=== PATIENT | female | born 1935 | race Caucasian/White ===

== ENCOUNTER 2016-11-17 14:53 | Inpatient (IN) | payer MEDICARE, MEDICAID ==
[~2016-11-17] VITALS: Ht 165.1 cm; Wt 91.2 kg
[~2016-11-17 14:53] MED LIST: ALLO100T PO; BENA5TAB2 PO; FEE PK DOSING 1 MIN EA MC ONE; FURO20TA PO; SULF1TAB48 PO; ZOLP5TAB2 PO
[2016-11-17] MEDS ORDERED: ATOR10TA PO (15:54)
[2016-11-17] MEDS ORDERED: OLOP2.5D EACHEYE (15:54)
[2016-11-17] MEDS ORDERED: LEVO25TA9 PO (15:54)
[2016-11-17] MEDS ORDERED: SULF1TAB48 PO (15:54)
[2016-11-17] MEDS ORDERED: ERGO50003 PO (15:54)
[2016-11-17] MEDS ORDERED: FLUO15CR2 TP (15:54)
[2016-11-17] MEDS ORDERED: FEBU40TA PO (15:54)
[2016-11-17] MEDS ORDERED: RIVA10TA PO (15:54)
[2016-11-17] MEDS ORDERED: TRAZ-144 PO (15:54)
[2016-11-17] MEDS ORDERED: AMIO200T2 PO (15:54)
[2016-11-17] MEDS ORDERED: MULT-659 PO (15:54)
[2016-11-17] MEDS ORDERED: DOCU-270 PO (15:54)
[2016-11-17] MEDS ORDERED: ASCO500T9 PO (15:54)
[2016-11-17] MEDS ORDERED: FERR325T28 PO (15:54)
[2016-11-17] MEDS ORDERED: COLC0.6T69 PO (15:54)
[2016-11-17] MEDS ORDERED: FLUT1DIS3 IH (15:54)
[2016-11-17] MEDS ORDERED: ERYT3.5O24 RIGHTEYE (15:55)
[2016-11-17 15:59] LABS: BASOPHILS # (AUTO) 0.1 /CMM (0.0-0.2); BASOPHILS % (AUTO) 0.5 % (0.0-2.0); DIFF TOTAL % 100 %; EOSINOPHILS # (AUTO) 0.1 /CMM (0.0-0.7); HEMATOCRIT 39 % (33-45); HEMOGLOBIN 12.5 g/dL (11.5-14.8); LYMPHOCYTES # (AUTO) 1.8 /CMM (0.8-4.8); LYMPHOCYTES % (AUTO) 17.2 % (20.0-44.0); MEAN CORPUSCULAR HEMOGLOBIN 26 PG (26.0-33.0); MEAN CORPUSCULAR HGB CONC 32 g/dl (31.0-36.0); MEAN CORPUSCULAR VOLUME 81 fL (82-100); MONOCYTES % (AUTO) 10.1 % (2.0-12.0); NEUTROPHILS # (AUTO) 7.3 /CMM (1.8-8.9); NEUTROPHILS % (AUTO) 71.2 % (43.0-81.0); PLATELET COUNT (AUTO) 188 /CMM (150-450); RED BLOOD CELL COUNT(AUTO) 4.84 MIL/uL (4.0-5.2); WHITE BLOOD COUNT (AUTO) 10.3 K/uL (4.3-11.0)
[2016-11-17] MEDS ORDERED: CEFTRIAXONE 1GM BAG (ER ONLY) 1 GM/50 ML PIGGYBACK IV ONE (16:00)
[2016-11-17] MEDS ORDERED: VANCOMYCIN 1 GM in IV D5W 250 ML IV ONE (16:00)
[2016-11-17] MEDS ORDERED: FEE PK DOSING 1 MIN EA MC ONE (16:00)
[2016-11-17 16:07] LABS: CALCIUM, SERUM 8.9 mg/dL (8.5-10.1); CREATININE 1.6 mg/dL (0.6-1.3); POTASSIUM 4.3 mmol/L (3.5-5.1)
[2016-11-17 16:13] LABS: ALBUMIN 3.1 g/dL (3.4-5.0); BILIRUBIN,TOTAL 0.5 mg/dL (0.2-1.0); TOTAL PROTEIN, SERUM 7.1 g/dL (6.4-8.2)
[2016-11-17] MEDS ORDERED: IV SET PRIMARY PUMP SET 1 EA INFUS.SET MC ONE (16:31)
[2016-11-17] MEDS ORDERED: CEFTRIAXONE 1GM BAG (ER ONLY) 50 ML IV ONE (16:31)
[2016-11-17 19:28] VITALS: BP 162/89
[2016-11-17] MEDS ORDERED: IV NS 0.9% 1,000 ML BAG IV SCH (19:30)
[2016-11-17 20:00] VITALS: BP 166/70
[2016-11-17] MEDS ORDERED: IV NS 0.9% 1,000 ML IV PRN (20:05)
[2016-11-17] MEDS ORDERED: HYDROCODONE/APAP 5/325MG 1 EACH TABLET PO PRN (20:30)
[2016-11-17] MEDS ORDERED: ACETAMINOPHEN 325 MG TABLET PO PRN (20:30)
[2016-11-17] MEDS ORDERED: Z GUARD REMEDY 2 OZ OINT TP PRN (20:30)
[2016-11-17] MEDS ORDERED: ONDANSETRON HCL/PF 4 MG/2 ML VIAL IVP PRN (20:30)
[2016-11-17] MEDS ORDERED: ZOLPIDEM TARTRATE 5 MG TABLET PO PRN (20:30)
[2016-11-17] MEDS ORDERED: CEFTRIAXONE 1 G in IV D5W 50 ML IV SCH (20:30)
[2016-11-17 20:49] VITALS: BP 166/70
[2016-11-17] MEDS ORDERED: ERGOCALCIFEROL (VITAMIN D 2) 50,000 UNIT CAPSULE PO SCH (21:00)
[2016-11-17] MEDS: FLUTICASONE/SALMETEROL DISKUS IH SCH (21:00)
[2016-11-17] MEDS: IV NS 0.9% 1,000 ML IV PRN (21:10)
[2016-11-17] MEDS: RIVAROXABAN 15 MG TABLET PO SCH (21:11)
[2016-11-17] MEDS: DOCUSATE SODIUM 100 MG CAPSULE PO SCH (21:11)
[2016-11-17] MEDS: PANTOPRAZOLE 40 MG VIAL IV SCH (21:12)
[2016-11-17] MEDS: TRAZODONE 50 MG TABLET PO SCH (21:13)
[2016-11-17] MEDS: AMIODARONE HCL 200 MG TABLET PO SCH (21:13)
[2016-11-18 05:46] VITALS: BP 126/69
[2016-11-18] MEDS: IV NS 0.9% 1,000 ML IV PRN (05:59)
[2016-11-18 07:20] LABS: BASOPHILS % (AUTO) 0.1 % (0.0-2.0); DIFF TOTAL % 100 %; EOSINOPHILS # (AUTO) 0.1 /CMM (0.0-0.7); EOSINOPHILS % (AUTO) 1.1 % (0.0-6.0); HEMATOCRIT 35 % (33-45); HEMOGLOBIN 11.3 g/dL (11.5-14.8); LYMPHOCYTES # (AUTO) 1.3 /CMM (0.8-4.8); LYMPHOCYTES % (AUTO) 13.7 % (20.0-44.0); MEAN CORPUSCULAR HEMOGLOBIN 26 PG (26.0-33.0); MEAN CORPUSCULAR HGB CONC 33 g/dl (31.0-36.0); MEAN CORPUSCULAR VOLUME 81 fL (82-100); MONOCYTES # (AUTO) 0.9 /CMM (0.1-1.30); MONOCYTES % (AUTO) 9.2 % (2.0-12.0); NEUTROPHILS # (AUTO) 7.3 /CMM (1.8-8.9); NEUTROPHILS % (AUTO) 75.9 % (43.0-81.0); PLATELET COUNT (AUTO) 181 /CMM (150-450); RED BLOOD CELL COUNT(AUTO) 4.31 MIL/uL (4.0-5.2); WHITE BLOOD COUNT (AUTO) 9.6 K/uL (4.3-11.0)
[2016-11-18] MEDS ORDERED: LEVOTHYROXINE SODIUM 25 MCG TABLET PO SCH (07:30)
[2016-11-18 07:32] LABS: ALBUMIN 2.4 g/dL (3.4-5.0); BILIRUBIN,TOTAL 0.4 mg/dL (0.2-1.0); CALCIUM, SERUM 8.1 mg/dL (8.5-10.1); CREATININE 1.4 mg/dL (0.6-1.3); PHOSPHORUS 3.1 mg/dL (2.5-4.9); POTASSIUM 4.7 mmol/L (3.5-5.1); TOTAL PROTEIN, SERUM 5.8 g/dL (6.4-8.2)
[2016-11-18 07:45] LABS: THYROID STIMULATING HORMONE 3.888 uIU/mL (0.358-3.74)
[2016-11-18 08:00] VITALS: BP 133/70
[2016-11-18] MEDS: ATORVASTATIN 10 MG TABLET PO SCH (09:47)
[2016-11-18] MEDS: FLUTICASONE/SALMETEROL DISKUS IH SCH ×2 (09:47→21:56)
[2016-11-18] MEDS: FERROUS SULFATE (325 MG) 325 MG/TAB TABLET PO SCH ×2 (09:47→17:45)
[2016-11-18] MEDS: COLCHICINE 0.6 MG TABLET PO SCH (09:47)
[2016-11-18] MEDS: PANTOPRAZOLE 40 MG VIAL IV SCH (09:47)
[2016-11-18] MEDS: ASCORBIC ACID 500 MG TABLET PO SCH (09:48)
[2016-11-18] MEDS: AMIODARONE HCL 200 MG TABLET PO SCH (09:48)
[2016-11-18] MEDS: HYDROGEL DRESSING 90 GM TUBE TP SCH (10:00)
[2016-11-18] MEDS: RIVAROXABAN 15 MG TABLET PO SCH (17:46)
[2016-11-18 20:51] VITALS: BP 89/57
[2016-11-18] MEDS: CEFTRIAXONE 1 G in IV D5W 50 ML IV SCH (20:52)
[2016-11-18] MEDS ORDERED: SECONDARY IV SET 1 EA INFUS.SET MC ONE (20:59)
[2016-11-18] MEDS: TRAZODONE 50 MG TABLET PO SCH (21:56)
[2016-11-18] MEDS: DOCUSATE SODIUM 100 MG CAPSULE PO SCH (21:56)
[2016-11-18 22:00] VITALS: BP 89/57
[2016-11-19] MEDS ORDERED: SECONDARY IV SET 1 EA INFUS.SET MC ONE (00:11)
[2016-11-19] MEDS: VANCOMYCIN 1.25 GM in IV D5W 500 ML IV SCH (00:12)
[2016-11-19] MEDS: IV NS 0.9% 1,000 ML IV PRN (05:51)
[2016-11-19 08:00] VITALS: BP 109/51
[2016-11-19] MEDS: LACTOBACILLUS RHAMNOSUS GG 1 EACH CAP.SPRINK PO SCH ×2 (08:45→17:27)
[2016-11-19] MEDS: ASCORBIC ACID 500 MG TABLET PO SCH (08:45)
[2016-11-19] MEDS: PANTOPRAZOLE 40 MG VIAL IV SCH (08:45)
[2016-11-19] MEDS: COLCHICINE 0.6 MG TABLET PO SCH (08:45)
[2016-11-19] MEDS: ATORVASTATIN 10 MG TABLET PO SCH (08:45)
[2016-11-19] MEDS: FERROUS SULFATE (325 MG) 325 MG/TAB TABLET PO SCH ×2 (08:45→17:28)
[2016-11-19] MEDS: AMIODARONE HCL 200 MG TABLET PO SCH (08:46)
[2016-11-19] MEDS: HYDROGEL DRESSING 90 GM TUBE TP SCH (08:47)
[2016-11-19] MEDS: FLUTICASONE/SALMETEROL DISKUS IH SCH ×2 (08:48→20:40)
[2016-11-19 16:00] VITALS: BP 122/58
[2016-11-19] MEDS: RIVAROXABAN 15 MG TABLET PO SCH (17:28)
[2016-11-19 20:00] VITALS: BP 133/97
[2016-11-19] MEDS: CEFTRIAXONE 1 G in IV D5W 50 ML IV SCH (20:35)
[2016-11-19] MEDS: DOCUSATE SODIUM 100 MG CAPSULE PO SCH (21:29)
[2016-11-20] MEDS: TRAZODONE 50 MG TABLET PO SCH ×2 (04:25→21:38)
[2016-11-20] MEDS: LEVOTHYROXINE SODIUM 25 MCG TABLET PO SCH (07:00)
[2016-11-20 07:39] LABS: CALCIUM, SERUM 8.4 mg/dL (8.5-10.1); CREATININE 1.6 mg/dL (0.6-1.3); POTASSIUM 4.4 mmol/L (3.5-5.1)
[2016-11-20 08:00] VITALS: BP 120/54
[2016-11-20] MEDS: PANTOPRAZOLE 40 MG VIAL IV SCH (09:10)
[2016-11-20] MEDS: ATORVASTATIN 10 MG TABLET PO SCH (09:10)
[2016-11-20] MEDS: ASCORBIC ACID 500 MG TABLET PO SCH (09:10)
[2016-11-20] MEDS: FERROUS SULFATE (325 MG) 325 MG/TAB TABLET PO SCH ×2 (09:10→16:37)
[2016-11-20] MEDS: COLCHICINE 0.6 MG TABLET PO SCH (09:10)
[2016-11-20] MEDS: LACTOBACILLUS RHAMNOSUS GG 1 EACH CAP.SPRINK PO SCH ×2 (09:10→16:37)
[2016-11-20] MEDS: AMIODARONE HCL 200 MG TABLET PO SCH (09:11)
[2016-11-20] MEDS: HYDROGEL DRESSING 90 GM TUBE TP SCH (09:11)
[2016-11-20] MEDS: FLUTICASONE/SALMETEROL DISKUS IH SCH ×2 (09:13→21:00)
[2016-11-20] MEDS: VANCOMYCIN 1.25 GM in IV D5W 500 ML IV SCH (12:03)
[2016-11-20 16:00] VITALS: BP 101/54
[2016-11-20] MEDS: RIVAROXABAN 15 MG TABLET PO SCH (16:37)
[2016-11-20 20:00] VITALS: BP 93/47
[2016-11-20] MEDS: CEFTRIAXONE 1 G in IV D5W 50 ML IV SCH (20:12)
[2016-11-20] MEDS: DOCUSATE SODIUM 100 MG CAPSULE PO SCH (21:38)
[2016-11-21] MEDS ORDERED: IV SET PRIMARY PUMP SET 1 EA INFUS.SET MC ONE (02:14)
[2016-11-21] MEDS: IV NS 0.9% 1,000 ML IV PRN (02:28)
[2016-11-21 07:43] LABS: CALCIUM, SERUM 8.4 mg/dL (8.5-10.1); CREATININE 1.6 mg/dL (0.6-1.3); POTASSIUM 4.6 mmol/L (3.5-5.1)
[2016-11-21 08:00] VITALS: BP 139/91
[2016-11-21] MEDS: PANTOPRAZOLE 40 MG VIAL IV SCH (08:43)
[2016-11-21] MEDS: LACTOBACILLUS RHAMNOSUS GG 1 EACH CAP.SPRINK PO SCH ×2 (08:43→16:53)
[2016-11-21] MEDS: FERROUS SULFATE (325 MG) 325 MG/TAB TABLET PO SCH ×2 (08:43→16:53)
[2016-11-21] MEDS: AMIODARONE HCL 200 MG TABLET PO SCH (08:44)
[2016-11-21] MEDS: COLCHICINE 0.6 MG TABLET PO SCH (08:44)
[2016-11-21] MEDS: LEVOTHYROXINE SODIUM 25 MCG TABLET PO SCH (08:44)
[2016-11-21] MEDS: ASCORBIC ACID 500 MG TABLET PO SCH (08:45)
[2016-11-21] MEDS: ATORVASTATIN 10 MG TABLET PO SCH (08:45)
[2016-11-21] MEDS: HYDROGEL DRESSING 90 GM TUBE TP SCH (08:46)
[2016-11-21] MEDS: FLUTICASONE/SALMETEROL DISKUS IH SCH (08:48)
[2016-11-21 16:00] VITALS: BP 116/71
[2016-11-21] MEDS: RIVAROXABAN 15 MG TABLET PO SCH (16:53)
== END 2016-11-21 17:36 | DRG 602 ==
LOC: ER 14:54 → MED 16:58
PROVIDERS: ADMIT Internal Medicine; ATTEND Internal Medicine
DX: L03.115 Cellulitis of right lower limb (principal); G93.40 Encephalopathy, unspecified; N17.0 Acute kidney failure with tubular necrosis; D68.59 Other primary thrombophilia; B95.62 Methicillin resistant Staphylococcus aureus infection as the cause of diseases classified elsewhere; M19.90 Unspecified osteoarthritis, unspecified site; M10.9 Gout, unspecified; E03.9 Hypothyroidism, unspecified; E78.5 Hyperlipidemia, unspecified; F03.90 Unspecified dementia, unspecified severity, without behavioral disturbance, psychotic disturbance, mood disturbance, and anxiety; I25.10 Atherosclerotic heart disease of native coronary artery without angina pectoris; I48.2 Chronic atrial fibrillation; L03.116 Cellulitis of left lower limb; N18.9 Chronic kidney disease, unspecified; Z85.3 Personal history of malignant neoplasm of breast; L53.9 Erythematous condition, unspecified; J44.9 Chronic obstructive pulmonary disease, unspecified; S81.801A Unspecified open wound, right lower leg, initial encounter; X58.XXXA Exposure to other specified factors, initial encounter; Y93.9 Activity, unspecified; Y92.89 Other specified places as the place of occurrence of the external cause; Y99.9 Unspecified external cause status; Z89.021 Acquired absence of right finger(s); I12.9 Hypertensive chronic kidney disease with stage 1 through stage 4 chronic kidney disease, or unspecified chronic kidney disease
CPT/HCPCS: 36415; 80048-TC; 80053-TC; 80061-TC; 80202-TC; 83735-TC; 84100-TC; 84443-TC; 84484-TC; 85025-TC; 87040-TC; 87081-TC; 94799-TC; A4606; A6248; C9113; J0696; J3370; J7030; J7060; Z7610

== ENCOUNTER 2017-10-17 11:28 | Inpatient (IN) | payer MEDICARE, MEDICAID ==
[~2017-10-17] VITALS: Ht 167.6 cm; Wt 83.2 kg
[~2017-10-17 11:28] MED LIST changes: -ALLO100T PO; +AMIO200T2 PO; +ASCO500T9 PO; +ATOR10TA PO; -BENA5TAB2 PO; +COLC0.6T69 PO; +DOCU-270 PO; +ERGO50003 PO; +FEBU40TA PO; -FEE PK DOSING 1 MIN EA MC ONE; +FERR325T28 PO; +FLUT1DIS3 IH; +FURO-145 PO; -FURO20TA PO; +LEVO25TA9 PO; +MULT-659 PO; +OLOP2.5D EACHEYE; +RIVA10TA PO; +TRAZ-144 PO; -ZOLP5TAB2 PO
[2017-10-17] MEDS ORDERED: LEVO50TA8 PO (11:38)
[2017-10-17] MEDS ORDERED: LEVA1.257 IH (11:38)
[2017-10-17] MEDS ORDERED: ACET-868 PO (11:40)
[2017-10-17] MEDS ORDERED: CHOL200026 PO (11:40)
--- NOTE | 2017-10-17 12:07 | NUR ---
report given to ce hendrix for cliff
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
[2017-10-17] MEDS ORDERED: IV NS 0.9% 1,000 ML IV PRN ×2 (12:56→13:15)
[2017-10-17 12:59] VITALS: BP 134/67
[2017-10-17] MEDS ORDERED: ZOLPIDEM TARTRATE 5 MG TABLET PO PRN ×2 (13:00→13:15)
[2017-10-17] MEDS ORDERED: LEVALBUTEROL HCL NEB 1.25 MG/0.5 ML VIAL.NEB IH PRN ×2 (13:00→13:15)
[2017-10-17] MEDS ORDERED: ACETAMINOPHEN 325 MG TABLET PO PRN ×4 (13:00→13:15)
[2017-10-17] MEDS ORDERED: HYDROCODONE/APAP 5/325MG 1 EACH TABLET PO PRN ×2 (13:00→13:15)
[2017-10-17] MEDS ORDERED: MAG HYDROX/AL HYDROX/SIMETH 30 ML UDC PO PRN ×2 (13:00→13:15)
[2017-10-17] MEDS ORDERED: Z GUARD REMEDY 2 OZ OINT TP PRN ×2 (13:00→13:15)
[2017-10-17] MEDS ORDERED: ENOXAPARIN SODIUM 30 MG/0.3 ML DISP.SYRIN SQ SCH (13:00)
[2017-10-17] MEDS ORDERED: MAGNESIUM HYDROXIDE 30 ML UDC PO PRN ×2 (13:00→13:15)
[2017-10-17] MEDS ORDERED: ONDANSETRON HCL/PF 4 MG/2 ML VIAL IVP PRN ×2 (13:00→13:15)
[2017-10-17 14:00] VITALS: BP 134/67
[2017-10-17] MEDS ORDERED: ALBUTEROL FS 2.5 MG/3 ML VIAL.NEB NEB PRN (15:30)
[2017-10-17 16:00] VITALS: BP 136/78
--- NOTE | 2017-10-17 19:25 | NUR ---
RN CLOSING NOTES PT. IS IN BED A&OX1, CONFUSED. BREATHING UNLABORED, AND EVENLY ON OXYGEN AT 2L/MIN VIA NASAL CANNULA. NO S/S OF ACUTE DISTRESS. IV ACCESS ON RIGHT HAND GAUGE 20. BED IS IN LOWEST AND LOCKED POSITION. 2 SIDE RAILS UP, AND CALL LIGHT WITHIN REACH. 2 SIDE RAILS UP, AND ALL NEEDS MET. WILL ENDORSE REPORT TO NURSE.
--- NOTE | 2017-10-17 19:49 | NUR ---
RN NOTES PATIENT IN BED, ALERT AND ORIENTED X1, WITH EPISODES OF CONFUSION, ABLE TO VERBALIZE NEEDS, TOLERATING 2LPM NC, SPO2 96%, DENIES ANY PAIN AT THIS TIME, RIGHT HAND PERIPHERAL LINE IS PATENT AND SECURED WITH DRESSING, NEEDS ATTENDED, KEPT SAFE AND COMFORTABLE, CALL LIGHT WITHIN REACH. Addendum: 10/18/17 at 0628 by JANKI ZHU RN CORRECTION: PATIENT HAS APHASIA, ABLE TO CONVEY NEEDS BY GESTURES.
[2017-10-17 20:00] VITALS: BP 142/72
--- NOTE | 2017-10-18 06:22 | NUR ---
RN NOTES PATIENT IS ALERT AND AWAKE, NO SOB, NO DISTRESS, SPO2 AT 2LPM VIA NC 97%, MOUTH BREATHER, WITH APHASIA, ABLE TO CONVEY NEEDS BY GESTURES WHEN NEEDING DIAPER CHANGE OR CALL LIGHT. ABLE TO TURN SIDE TO SIDE DURING DIAPER CHANGE. NEEDS ATTENDED, KEPT SAFE AND COMFORTABLE, CALL LIGHT WITHIN REACH.
[2017-10-18] MEDS ORDERED: LEVOTHYROXINE SODIUM 50 MCG TABLET PO SCH (07:30)
--- NOTE | 2017-10-18 07:47 | NUR ---
RN OPENING NOTES RECEIVED PATIENT RESTING COMFORTABLY IN BED WITH EYES CLOSED. PATIENT EASILY AROUSABLE. AOX1. UNABLE TO FOLLOW VERBAL COMMANDS. CONFUSED AND APHASIC. ON BED REST. BREATH SOUNDS AUSCULTATED AND ADVENTITIOUS BREATHE SOUNDS HEARD. RESPIRATIONS EVEN AND UNLABORED. NO ACUTE DISTRESS NOTED. RIGHT HAND 22G PATENT AND INTACT. BED LOCKED IN THE LOWEST POSITION WITH SIDERAILS UP X2. CALL LIGHT WITHIN REACH. WILL CONTINUE TO MONITOR, ASSESS AND EDUCATE PATIENT THROUGHOUT SHIFT.
[2017-10-18 08:00] VITALS: BP 126/74
[2017-10-18] MEDS ORDERED: AMIODARONE HCL 200 MG TABLET PO SCH (09:00)
[2017-10-18] MEDS ORDERED: Medication Not On Formulary EA (Multivits,Th W-Fe,Other Min (Thera-M) 1 EACH) PO SCH (09:00)
[2017-10-18] MEDS: AMIODARONE HCL 200 MG TABLET PO SCH (09:02)
[2017-10-18] MEDS: LEVOTHYROXINE SODIUM 50 MCG TABLET PO SCH (09:02)
[2017-10-18] MEDS: ENOXAPARIN SODIUM 30 MG/0.3 ML DISP.SYRIN SQ SCH (09:03)
[2017-10-18] MEDS ORDERED: MENTHOL/CETYLPYRD (CEPACOL) 1 LOZ LOZENGE PO PRN ×2 (10:00→13:00)
[2017-10-18] MEDS ORDERED: POLYVINYL ALCOHOL 15 ML BOTTLE EACHEYE PRN ×2 (10:00→13:00)
--- NOTE | 2017-10-18 15:33 | NUR ---
RN NOTES OATIENT MOVED TO 323-2. PATIENT REQUIRES A SITTER. SITTER NOW AT THE BEDSIDE FOR SAFETY.
[2017-10-18 15:36] LABS: ALANINE AMINOTRANSFERASE 21 U/L (12-78); ALBUMIN 2.7 g/dL (3.4-5.0); ALKALINE PHOSPHATASE 136 U/L (46-116); ASPARTATE AMINOTRANSFERASE 16 U/L (15-37); BILIRUBIN,TOTAL 0.4 mg/dL (0.2-1.0); CALCIUM, SERUM 9.1 mg/dL (8.5-10.1); CARBON DIOXIDE 27 mmol/L (21-32); CHLORIDE 109 mmol/L (98-107); CREATININE 1.6 mg/dL (0.6-1.3); GLUCOSE 101 mg/dL (74-106); PHOSPHORUS 3.3 mg/dL (2.5-4.9); POTASSIUM 4.8 mmol/L (3.5-5.1); SODIUM SERUM 143 mmol/L (136-145); TOTAL PROTEIN, SERUM 6.8 g/dL (6.4-8.2); UREA NITROGEN, BLOOD 39 mg/dL (7-18)
[2017-10-18 15:38] LABS: BASOPHILS % (AUTO) 0.4 % (0.0-2.0); EOSINOPHILS # (AUTO) 0.2 /CMM (0.0-0.7); EOSINOPHILS % (AUTO) 2.2 % (0.0-6.0); HEMATOCRIT 40 % (33-45); HEMOGLOBIN 12.4 g/dL (11.5-14.8); LYMPHOCYTES # (AUTO) 2.1 /CMM (0.8-4.8); LYMPHOCYTES % (AUTO) 30.5 % (20.0-44.0); MEAN CORPUSCULAR HEMOGLOBIN 25 PG (26.0-33.0); MEAN CORPUSCULAR HGB CONC 31 g/dl (31.0-36.0); MEAN CORPUSCULAR VOLUME 78 fL (82-100); MONOCYTES # (AUTO) 0.8 /CMM (0.1-1.30); MONOCYTES % (AUTO) 11.5 % (2.0-12.0); NEUTROPHILS # (AUTO) 3.8 /CMM (1.8-8.9); NEUTROPHILS % (AUTO) 55.4 % (43.0-81.0); PLATELET COUNT (AUTO) 250 /CMM (150-450); RDW COEFFICIENT OF VARIATION 17.6 (11.5-15.0); RED BLOOD CELL COUNT(AUTO) 5.07 MIL/uL (4.0-5.2); WHITE BLOOD COUNT (AUTO) 6.9 K/uL (4.3-11.0)
[2017-10-18 16:00] VITALS: BP 148/75
--- NOTE | 2017-10-18 19:00 | NUR ---
RN NOTES PATIENT CARE CONTINUED INTO NEXT 12 HRS.
[2017-10-18 20:00] VITALS: BP 114/73
--- NOTE | 2017-10-19 07:10 | NUR ---
RN CLOSING NOTES PATIENT RESTING COMFORTABLE IN BED. AOX1 APHASIAC AND CONFUSED. DENIES SOB, CP AND ANY PAIN AT THIS TIME. R HAND 20G PATENT AND INTACT. RESPIRATIONS EVEN AND UNLABORED. NO ACUTE DISTRESS. SITTER AT THE BEDSIDE. ALL NEEDS MET, ALL MEDS GIVEN APPROPRIATE IN PAST 24 HRS. BED LOCKED IN THE LOWEST POSITION. SIDE RAILS UPX2. WILL ENDORSE TO MORNING SHIFT FOR KYLEIGH.
--- NOTE | 2017-10-19 07:30 | NUR ---
PT RECEIVED RESTING COMFORTABLY IN BED WITH EYES CLOSED. NO S/S OR C/O PAIN OR DISTRESS NOTED. SIDE RAILS UP X2 CALL LIGHT LEFT WITHIN REACH. WILL CONTINUE PLAN OF CARE.
[2017-10-19 08:11] LABS: BASOPHILS % (AUTO) 0.3 % (0.0-2.0); EOSINOPHILS # (AUTO) 0.1 /CMM (0.0-0.7); EOSINOPHILS % (AUTO) 1.7 % (0.0-6.0); HEMATOCRIT 38 % (33-45); HEMOGLOBIN 12.3 g/dL (11.5-14.8); LYMPHOCYTES # (AUTO) 2.5 /CMM (0.8-4.8); LYMPHOCYTES % (AUTO) 32.9 % (20.0-44.0); MEAN CORPUSCULAR HEMOGLOBIN 25 PG (26.0-33.0); MEAN CORPUSCULAR HGB CONC 33 g/dl (31.0-36.0); MEAN CORPUSCULAR VOLUME 78 fL (82-100); MONOCYTES % (AUTO) 12.3 % (2.0-12.0); NEUTROPHILS # (AUTO) 4.1 /CMM (1.8-8.9); NEUTROPHILS % (AUTO) 52.8 % (43.0-81.0); PLATELET COUNT (AUTO) 201 /CMM (150-450); RDW COEFFICIENT OF VARIATION 17.8 (11.5-15.0); RED BLOOD CELL COUNT(AUTO) 4.84 MIL/uL (4.0-5.2); WHITE BLOOD COUNT (AUTO) 7.8 K/uL (4.3-11.0)
[2017-10-19 08:27] LABS: CALCIUM, SERUM 9.1 mg/dL (8.5-10.1); CARBON DIOXIDE 25 mmol/L (21-32); CHLORIDE 108 mmol/L (98-107); CREATININE 1.7 mg/dL (0.6-1.3); GLUCOSE 87 mg/dL (74-106); MAGNESIUM 2.2 mg/dL (1.8-2.4); PHOSPHORUS 3.9 mg/dL (2.5-4.9); POTASSIUM 4.9 mmol/L (3.5-5.1); SODIUM SERUM 140 mmol/L (136-145); UREA NITROGEN, BLOOD 43 mg/dL (7-18)
[2017-10-19] MEDS: LEVOTHYROXINE SODIUM 50 MCG TABLET PO SCH (09:59)
[2017-10-19] MEDS: AMIODARONE HCL 200 MG TABLET PO SCH (09:59)
[2017-10-19] MEDS: ENOXAPARIN SODIUM 30 MG/0.3 ML DISP.SYRIN SQ SCH (09:59)
[2017-10-19] MEDS ORDERED: LORAZEPAM 0.5 MG TABLET PO PRN (12:30)
[2017-10-19] MEDS: ALBUTEROL FS 2.5 MG/0.5 ML VIAL.NEB NEB SCH ×3 (12:58→20:21)
[2017-10-19] MEDS ORDERED: LORAZEPAM INJ 2 MG/ML VIAL IM ONE (13:00)
[2017-10-19] MEDS: ERYTHROMYCIN BASE OPHTH 3.5 GM TUBE EACHEYE SCH ×2 (13:00→21:00)
[2017-10-19] MEDS ORDERED: LORAZEPAM INJ 2 MG/ML VIAL IV PRN (13:00)
--- NOTE | 2017-10-19 13:00 | NUR ---
PT PRESENTS WITH AGITATION AND AGGRESSIVE BEHAVIOR PT ATTEMPTING TO GET OUT OF BED, SITTER AT BEDSIDE FOR PREVENTION. IV CATHETER PULLED OUT BY PATIENT. PRESSURE DRESSING APPLIED. MD MADE AWARE. ORDERS RECEIVED WILL CARRY OUT.
--- NOTE | 2017-10-19 13:17 | NUR ---
RT NOTE: LATE ENTRY: @1144-BREATHING TREATMENT WAS GIVEN BLOW-BY WITH NURSE (LAYNE) AND SITTER HOLDING HER DOWN. PATIENT IS AGITATED, CRYING, AND COMBATIVE. PLACED ON 3LPM VIA NASAL CANNULA AFTER TREATMENT. @1300- SPOKE TO CHARGE NURSE(DIO) REGARDING ABG ORDER. PATIENT REMAINS AGITATED AND COMBATIVE, UNABLE TO OBTAIN ARTERIAL SAMPLE AT THIS TIME. DIO STATES THAT THEY WILL NOTIFY ME WHEN PATIENT IS CALM.
--- NOTE | 2017-10-19 15:15 | NUR ---
PT REFUSED IV INSERTION. Addendum: 10/19/17 at 1855 by LAYNE PATEL RN NURSING EDUCATION PERFORMED TO EXPLAIN IMPORTANCE OF IV ACCESS BUT PATIENT CONTINUES TO REFUSE ADAMANTLY.
[2017-10-19 15:17] LABS: ABG OXYGEN SATURATION 92.2 % (92.0-98.5); ABG PCO2 40.3 mmHg (35.0-45.0); ABG PO2 63.3 mmHg (75.0-100.0); AaDO2 38.2 mmHg; COHb 0.8 % (0.5-1.5); MetHb 0.6 % (0.0-1.5); O2Hb 90.9 % (94.0-97.0); SITE, ABG Right Radial; VENT MODE, BG ROOM AIR
--- NOTE | 2017-10-19 18:30 | NUR ---
PT REFUSED IV INSERTION NURSING EDUCATION PERFORMED TO EXPLAIN IMPORTANCE OF IV ACCESS BUT PATIENT CONTINUES TO REFUSE ADAMANTLY.
--- NOTE | 2017-10-19 18:49 | NUR ---
CHANGE OF SHIFT REPORT PT RESTING COMFORTABLY IN BED. NO S/S OR C/O PAIN OR DISTRESS NOTED. SIDE RAILS UP X2, CALL LIGHT LEFT WITHIN REACH. PT KEPT CLEAN, DRY, AND COMFORTABLE. NO SIGNIFICANT CHANGES SINCE PREVIOUS SHIFT. WILL GIVE REPORT TO SLADE SPRING.
[2017-10-19 20:47] VITALS: BP 108/70
[2017-10-20] MEDS: ALBUTEROL FS 2.5 MG/0.5 ML VIAL.NEB NEB SCH ×6 (00:31→19:51)
--- NOTE | 2017-10-20 06:42 | NUR ---
ms/rn notes Patient remain in stable condition. Remain confused and disoriented. With 1:1 sitter at bedside. No acute distress noted. Vital signs stable,afebrile. No complaints of any pain or discomfort. All needs attended. All nursing protocols implemented and were effective, Will continue plan of care.
--- NOTE | 2017-10-20 07:12 | NUR ---
RN INITIAL NOTES: REC'D PT AWAKE ON BED, NOT IN ANY DISTRESS, A/O X 2 W/ CONFUSION, DENIES ANY PAIN/DISCOMFORT. ON O2 AT 2LPM/NC, NO SOB. HAS L HAND 622, SL, FLUSHED, PATENT & INTACT W/ NO S/SX OF INFECTION/INFILTRATION NOTED. PROVIDED COMFORT & SAFETY MEASURES. BED KEPT LOW & IN LOCKED POS. CALL LIGHT PLACED W/IN REACH. WILL CONTINUE TO MONITOR AND ATTEND PT NEEDS.
[2017-10-20 07:41] LABS: BASOPHILS % (AUTO) 0.4 % (0.0-2.0); EOSINOPHILS # (AUTO) 0.1 /CMM (0.0-0.7); EOSINOPHILS % (AUTO) 0.8 % (0.0-6.0); HEMATOCRIT 37 % (33-45); LYMPHOCYTES # (AUTO) 2.3 /CMM (0.8-4.8); LYMPHOCYTES % (AUTO) 30.4 % (20.0-44.0); MEAN CORPUSCULAR HEMOGLOBIN 25 PG (26.0-33.0); MEAN CORPUSCULAR HGB CONC 32 g/dl (31.0-36.0); MEAN CORPUSCULAR VOLUME 78 fL (82-100); MONOCYTES % (AUTO) 13.5 % (2.0-12.0); NEUTROPHILS # (AUTO) 4.2 /CMM (1.8-8.9); NEUTROPHILS % (AUTO) 54.9 % (43.0-81.0); PLATELET COUNT (AUTO) 216 /CMM (150-450); RDW COEFFICIENT OF VARIATION 17.2 (11.5-15.0); WHITE BLOOD COUNT (AUTO) 7.7 K/uL (4.3-11.0)
[2017-10-20 07:51] LABS: CALCIUM, SERUM 9.2 mg/dL (8.5-10.1); CARBON DIOXIDE 26 mmol/L (21-32); CHLORIDE 110 mmol/L (98-107); CREATININE 1.8 mg/dL (0.6-1.3); GLUCOSE 97 mg/dL (74-106); MAGNESIUM 2.1 mg/dL (1.8-2.4); PHOSPHORUS 4.5 mg/dL (2.5-4.9); POTASSIUM 4.7 mmol/L (3.5-5.1); SODIUM SERUM 145 mmol/L (136-145); UREA NITROGEN, BLOOD 46 mg/dL (7-18)
[2017-10-20 08:00] VITALS: BP 116/69
[2017-10-20] MEDS: LEVOTHYROXINE SODIUM 50 MCG TABLET PO SCH (08:47)
[2017-10-20] MEDS: AMIODARONE HCL 200 MG TABLET PO SCH (08:48)
[2017-10-20] MEDS: ENOXAPARIN SODIUM 30 MG/0.3 ML DISP.SYRIN SQ SCH (08:48)
[2017-10-20] MEDS: ERYTHROMYCIN BASE OPHTH 3.5 GM TUBE EACHEYE SCH (09:00)
[2017-10-20 16:00] VITALS: BP 116/44
--- NOTE | 2017-10-20 18:39 | NUR ---
RN CLOSING NOTES: NO ACUTE CHANGES NOTED W/IN SHIFT. PT TOLERATED O2 AT 2LPM/NC, NO SOB. L HAND 622, SL, KEPT PATENT & INTACT W/ NO S/SX OF INFECTION/INFILTRATION NOTED. KEPT WELL RESTED. NEEDS ATTENDED. BED KEPT LOW & IN LOCKED POS. CALL LIGHT PLACED W/IN REACH. PT IS FOR DC BACK TO [facility]. DR. LONG MADE AWARE, AGREED TO PUT DC ORDERS WELL TO DC PRN IV MEDS AND LOVENOX SQ. PER CM, BEAMER OPERATOR TIME AT 8:30 PM. REPORT GIVEN TO SAW CONNORS. WILL ENDORSE TO PM RN FOR KYLEIGH.
[2017-10-20 20:00] VITALS: BP 117/75
--- NOTE | 2017-10-20 20:00 | NUR ---
ms/rn notes transportation pecan picker cam arrived 2 emt, patient on a gurney, vital signs check at 117/75, o2 sat on 2l at 97%, pulse 75, no grimace, no guarding, iv on left hand removed, , tolerate and covered with gauze and tape. pictures taken on left upper arm with some skin discoloration right hand amputation photo taken. respiration even and unlabored.report given to transport. id band removed.
[2017-10-21] MEDS ORDERED: ERYT3.5O9 EACHEYE (14:11)
[2017-10-21] MEDS ORDERED: ALBUT2 NEB (14:11)
== END 2017-10-20 20:30 | DRG 917 ==
LOC: ER 11:30 → MED 15:03
PROVIDERS: ADMIT Internal Medicine; ATTEND Internal Medicine
DX: T59.811A Toxic effect of smoke, accidental (unintentional), initial encounter (principal); J96.01 Acute respiratory failure with hypoxia; N17.0 Acute kidney failure with tubular necrosis; G93.41 Metabolic encephalopathy; D68.59 Other primary thrombophilia; I48.91 Unspecified atrial fibrillation; E86.9 Volume depletion, unspecified; Z99.81 Dependence on supplemental oxygen; J70.5 Respiratory conditions due to smoke inhalation; Y92.129 Unspecified place in nursing home as the place of occurrence of the external cause; I12.9 Hypertensive chronic kidney disease with stage 1 through stage 4 chronic kidney disease, or unspecified chronic kidney disease; N18.9 Chronic kidney disease, unspecified; M19.90 Unspecified osteoarthritis, unspecified site; Z89.021 Acquired absence of right finger(s); Z79.899 Other long term (current) drug therapy; E03.9 Hypothyroidism, unspecified; J44.9 Chronic obstructive pulmonary disease, unspecified; I25.10 Atherosclerotic heart disease of native coronary artery without angina pectoris; F03.90 Unspecified dementia, unspecified severity, without behavioral disturbance, psychotic disturbance, mood disturbance, and anxiety
CPT/HCPCS: 36415; 36600; 71010-TC; 80048-TC; 80053-TC; 82803-TC; 83735-TC; 84100-TC; 85025-TC; 87081-TC; 92521; A4606; A6402; J1650; J2060; J7030; Z7610

== ENCOUNTER 2023-03-21 19:14 | Inpatient (IN) | payer MEDICARE, OTHER ==
[~2023-03-21] VITALS: Ht 142.2 cm; Wt 83.9 kg
[~2023-03-21 19:14] MED LIST changes: +ACET-868 PO; +ALBUT2 NEB; -AMIO200T2 PO; +AMIO200T5 PO; -ASCO500T9 PO; -ATOR10TA PO; +CHOL200026 PO; -COLC0.6T69 PO; -DOCU-270 PO; -ERGO50003 PO; +ERYT3.5O9 EACHEYE; -FEBU40TA PO; -FERR325T28 PO; -FLUT1DIS3 IH; -FURO-145 PO; +LEVA1.257 IH; -LEVO25TA9 PO; +LEVO50TA8 PO; -OLOP2.5D EACHEYE; -RIVA10TA PO; -SULF1TAB48 PO; -TRAZ-144 PO
--- NOTE | 2023-03-21 19:57 | NUR ---
LORAINE PA FROM SNF FOR ELEVATED BUN, CR, pt to bed 11, placed on monitor, vss, pending er provider corby
[2023-03-21 20:56] LABS: BILIRUBIN,URINE NEGATIVE (NEGATIVE); COLOR,URINE YELLOW (YELLOW); LEUKOCYTE ESTERASE ,URINE 1+ (NEGATIVE); NITRITE, URINE NEGATIVE (NEGATIVE); PH,URINE 5.5 (5.0-8.0); PROTEIN,URINE TRACE mg/dl (NEGATIVE); UGLUCOSE NEGATIVE (NEGATIVE); UROBILINOGEN,URINE 0.2 EU/dL (0.2)
[2023-03-21 21:03] LABS: BASOPHILS % (AUTO) 0.4 % (0.0-2.0); EOSINOPHILS % (AUTO) 0.5 % (0.0-6.0); HEMATOCRIT 44 % (33-45); HEMOGLOBIN 13.2 g/dL (11.5-14.8); LYMPHOCYTES # (AUTO) 1.7 K/uL (0.8-4.8); LYMPHOCYTES % (AUTO) 22.1 % (20.0-44.0); MEAN CORPUSCULAR HGB CONC 30 g/dl (31.0-36.0); MEAN CORPUSCULAR VOLUME 84 fL (82-100); MONOCYTES # (AUTO) 1.1 K/uL (0.1-1.30); MONOCYTES % (AUTO) 15.1 % (2.0-12.0); NEUTROPHILS # (AUTO) 4.7 K/uL (1.8-8.9); NEUTROPHILS % (AUTO) 61.9 % (43.0-81.0); PLATELET COUNT (AUTO) 158 K/uL (150-450); RED BLOOD CELL COUNT(AUTO) 5.18 MIL/uL (4.0-5.2); WHITE BLOOD COUNT (AUTO) 7.6 K/uL (4.3-11.0)
[2023-03-21 21:07] LABS: RBC,URINE NONE SEEN /HPF (0-2)
[2023-03-21 21:08] LABS: BACTERIA,URINE 3+ /HPF (None Seen); MUCUS,URINE Moderate /LPF (None Seen)
[2023-03-21 21:19] LABS: CALCIUM, SERUM 9.3 mg/dL (8.5-10.1); CARBON DIOXIDE 22 mmol/L (21-32); CHLORIDE 104 mmol/L (98-107); CREATININE 4.2 mg/dL (0.6-1.3); GLUCOSE 120 mg/dL (74-106); POTASSIUM 4.9 mmol/L (3.5-5.1); SODIUM SERUM 140 mmol/L (136-145)
[2023-03-21 21:21] LABS: UREA NITROGEN, BLOOD 88 mg/dL (7-18)
--- NOTE | 2023-03-21 22:27 | NUR ---
COVID SWAB DONE AND SENT TO LAB
[2023-03-21] MEDS ORDERED: CEFEPIME 1 GM in IV D5W 50 ML IV ONE (22:30)
[2023-03-21] MEDS ORDERED: CEFEPIME 1 GM VIAL ONE (23:00)
[2023-03-21] MEDS ORDERED: ACETAMINOPHEN 325 MG TABLET PO PRN (23:30)
[2023-03-21] MEDS ORDERED: ONDANSETRON HCL/PF 4 MG/2 ML VIAL IVP PRN (23:30)
[2023-03-21] MEDS ORDERED: Z GUARD REMEDY 4 OZ OINT TP PRN (23:30)
--- NOTE | 2023-03-21 23:45 | NUR ---
report given to judson hendrix for cliff
[2023-03-22] MEDS ORDERED: CEFTRIAXONE 1GM BAG (ER ONLY) 50 ML IV ONE (01:08)
[2023-03-22] MEDS: CEFTRIAXONE 1 G in IV D5W 50 ML IV SCH ×2 (01:09→21:00)
[2023-03-22] MEDS: IV 1/2NS 1000 ML 1,000 ML IV PRN ×2 (01:14→15:46)
[2023-03-22 01:56] VITALS: BP 118/74
--- NOTE | 2023-03-22 02:20 | NUR ---
EGG GATHERERBIBLE TEACHER NOTE RECEIVED REPORT FROM SAW MACHUCA. PATIENT WAS BROUGHT TO THE UNIT AT AROUND 0000 VIA STRETCHER, ACCOMPANIED BY 2 ER STAFF. PER REPORT, PATIENT WAS SENT TO HOSPITAL FROM SNF D/T ABNORMAL LABS AND WAS FOUND OUT THAT PATIENT HAS ELEVATED BUN AND CREATININE. DIRECTED TO ROOM 326-1. PATIENT IS AWAKE BUT NON VERBAL. ABLE TO FOLLOW SIMPLE COMMANDS BUT CONFUSED. EXPLAINED ADMISSION PROCESS WHICH INCLUDES SKIN ASSESSMENT. UPON INSPECTION, PATIENT WAS NOTED WITH SEVERAL SKIN ISSUES INCLUDING SMALL OPEN WOUND ON R BUTTOCK AND MULTIPLE SKIN DISCOLORATION ON BUE EXTREMITIES AND ABRASION ON LEFT LOWER LEG. PATIENT WAS PLACED ON O2 VIA NASAL CANNULA AT 1-2LPM AND HOOKED ON TELE MONITORING WITH CURRENT READING OF A-FIB. WITH IV ACCESS ON R WRIST 22G AND STARTED WITH 1/2 NS AT 75ML/HR. ALSO STARTED IV ATB ORDERED. VITALS TAKEN AND RECORDED. INSERTED RUSH CATHETER F16 ORDERED, TOLERATED WELL. BELONGINGS AND VALUABLES PROPERLY CHECKED AND DOCUMENTED TOGETHER WITH ASSIGNED UROLOGY NURSE. SAFETY MEASURES IN PLACE. KEPT BED IN LOCKED AND IN LOW POSITION. SIDE RAILS UP X2. CALL LIGHT WITHIN EASY REACH.
[2023-03-22 03:49] VITALS: BP 118/74
--- NOTE | 2023-03-22 06:21 | NUR ---
BIOMASS POWER PLANT MANAGER CLOSING NOTE PATIENT IN BED, ASLEEP BUT EASY TO AROUSE AND REACTS TO TACTILE STIMULI. AFEBRILE AND NOT IN ANY FORM OF ACUTE DISTRESS. ON O2 INHALATION VIA NASAL CANNULA AT 1-2LPM. ON TELE MONITORING WITH CURRENT READING OF SR 63 WITH EPISODES OF A-FIB. WITH IV ACCESS ON R WRIST 22G RUNNING WITH 1/2 NS AT 75ML/HR. WITH INTACT RUSH CATHETER, DRAINING WELL WITH YELLOW URINE OUTPUT, NO HEMATURIA OR SEDIMENTS NOTED APPROX. 125 ML OUTPUT DURING THE SHIFT. MEDICATED ORDERED. ON IV ATB, MONITORED FOR ANY ADVERSE REACTION. SAFETY MEASURES IN PLACE. KEPT BED IN LOCKED AND IN LOW POSITION. SIDE RAILS UP X2. ADVISED TO USE THE CALL LIGHT WHEN IN NEED OF ASSISTANCE. ALL NURSING NEEDS ATTENDED. ENDORSED TO INCOMING SHIFT FOR CONTINUITY OF CARE.
[2023-03-22 06:37] LABS: BASOPHILS % (AUTO) 0.5 % (0.0-2.0); EOSINOPHILS % (AUTO) 0.8 % (0.0-6.0); HEMATOCRIT 38 % (33-45); HEMOGLOBIN 11.7 g/dL (11.5-14.8); LYMPHOCYTES # (AUTO) 1.9 K/uL (0.8-4.8); LYMPHOCYTES % (AUTO) 21.1 % (20.0-44.0); MEAN CORPUSCULAR HGB CONC 31 g/dl (31.0-36.0); MEAN CORPUSCULAR VOLUME 83 fL (82-100); MONOCYTES # (AUTO) 1.8 K/uL (0.1-1.30); MONOCYTES % (AUTO) 20.1 % (2.0-12.0); NEUTROPHILS # (AUTO) 5.1 K/uL (1.8-8.9); NEUTROPHILS % (AUTO) 57.5 % (43.0-81.0); PLATELET COUNT (AUTO) 160 K/uL (150-450); RED BLOOD CELL COUNT(AUTO) 4.58 MIL/uL (4.0-5.2); WHITE BLOOD COUNT (AUTO) 8.8 K/uL (4.3-11.0)
[2023-03-22 06:52] LABS: ALANINE AMINOTRANSFERASE 20 U/L (12-78); ALBUMIN 2.7 g/dL (3.4-5.0); ALKALINE PHOSPHATASE 150 U/L (46-116); ASPARTATE AMINOTRANSFERASE 21 U/L (15-37); BILIRUBIN,DIRECT 0.3 mg/dL (0.0-0.2); BILIRUBIN,TOTAL 0.7 mg/dL (0.2-1.0); CALCIUM, SERUM 8.9 mg/dL (8.5-10.1); CARBON DIOXIDE 21 mmol/L (21-32); CHLORIDE 106 mmol/L (98-107); CREATININE 4.2 mg/dL (0.6-1.3); GLUCOSE 96 mg/dL (74-106); MAGNESIUM 2.9 mg/dL (1.8-2.4); PHOSPHORUS 4.8 mg/dL (2.5-4.9); POTASSIUM 5.9 mmol/L (3.5-5.1); SODIUM SERUM 140 mmol/L (136-145); TOTAL PROTEIN, SERUM 6.6 g/dL (6.4-8.2); UREA NITROGEN, BLOOD 88 mg/dL (7-18)
[2023-03-22 06:59] LABS: THYROID STIMULATING HORMONE 2.812 uIU/mL (0.358-3.74)
--- NOTE | 2023-03-22 07:44 | NUR ---
PATCH WORKER NOTES PT IN BED, ASLEEP, AROUSABLE BY NAME, OPENS EYES, NON VERBAL, NO SIGN OF PAIN OR DISTRESS, CALL LIGHT WITHIN REACH, IV FLUIDS INFUSING WELL, RUSH IN PLACE, DRAINING WELL WITH CLEAR, YELLOW URINE, KEPT COMFORTABLE IN BED.
--- NOTE | 2023-03-22 08:26 | NUR ---
WOUND CARE CONSULT: PT PRESENTS WITH MULTIPLE AREAS OF SKIN DISCOLORATION ON EXTREMITIES, SCAR/DISCOLORATION TO ABDOMEN, OPEN SKIN TO RT AND LEFT BUTTOCKS AND RASH TO GROIN FOLDS, PERINEUM, AND INNER THIGHS, ALL PRESENT ON ADMISSION. RECOMMENDATIONS MADE FOR SKIN PROTECTION. DISCUSSED WITH NURSING STAFF. MD IN AGREEMENT WITH PLAN OF CARE.
[2023-03-22] MEDS: PANTOPRAZOLE 40 MG VIAL IV SCH (08:32)
[2023-03-22] MEDS ORDERED: ACET-2605 PO (09:29)
[2023-03-22] MEDS ORDERED: POLY15DR40 EACHEYE (09:29)
[2023-03-22] MEDS ORDERED: MAGN400O6 PO (09:29)
[2023-03-22] MEDS ORDERED: LEVO88TA5 PO (09:29)
[2023-03-22 10:13] VITALS: BP 130/88
[2023-03-22] MEDS ORDERED: SODIUM POLYSTYRENE SULF. PWD 15 GM UDC PO ONE (10:30)
--- NOTE | 2023-03-22 11:07 | NUR ---
BOAT DOCK OPERATOR NOTES PT AGITATED, STARTING TO PULL O2 TUBES AND IV LINE,SCRATCHING AND PINCHING STAFF, UNABLE TO FOLLOW DIRECTIONS, DR. LOCO INFORMED, ORDERED BILATERAL SOFT WRIST RESTRAINTS, SAFETY MEASURES OBSERVED, KEPT PT COMFORTABLE, WILL CONTINUE TO MONITOR.
[2023-03-22] MEDS: CLOTRIMAZOLE 1% 15 GM TUBE TP SCH ×2 (11:15→16:32)
[2023-03-22 15:55] VITALS: BP 91/69
[2023-03-22 17:00] VITALS: BP 107/61
[2023-03-22 17:08] LABS: LYMPHOCYTES % (MANUAL) 20 % (16-48); MONOCYTES % (MANUAL) 20 % (0-11.0); NEUTROPHILS % (MANUAL) 60 (42-76)
--- NOTE | 2023-03-22 18:41 | NUR ---
SALES OUTFITTER NOTES PT IN BED, ASLEEP, EASY TO AROUSE, ALERT TO NAME, IV FLUIDS INFUSING WELL, PM CARE PROVIDED, WITH EPISODES OF YELLING AND TRYING TO PULL TUBES AND IV LINE, ON SOFT WRIST RESTRAINTS, CHECKED FOR CIRCULATION AND PLACEMENT, REPOSITIONED FOR COMFORT, KEPT HOB ELEVATED, SAFETY PRECAUTIONS OBSERVED.
--- NOTE | 2023-03-22 19:30 | NUR ---
PHYSICAL THERAPY DIRECTOR OPENING NOTES RECEIVED PATIENT IN BED WITH OPEN EYES. PATIENT ABLE TO MAKE NEEDS KNOWN . A/O TIMES 1 WITH CONFUSION. PER PREVIOUS SHIFT NURSE PATIENT WAS TRYING TO REMOVE TUBINGS. PATIENT IS ON BILATERAL SOFT RESTRAIN . SKIN AND CIRCULATION CHECKED. NO PAIN NOTED. NO SOB NOTED. NO DISTRESS NOTED. ON O2 INHALATION VIA NASAL CANNULA AT 2L/MIN. ON TELE MONITOR READING SR. RUSH CATHETER INTACT AND DRAINING YELLOW COLOR URINE VIA GRAVITY. IV ACCESS ON THE RIGHT HAND G # 22 AND LEFT FA G # 22 INTACT AND RUNNING 1/2 NS AT 75 ML/HR. ALL NEEDS ATTENDED. KEPT HOB ELEVATED FOR ASPIRATION. ALL SAFETY MEASURES IN PLACE. BED LOCKED IN THE LOWEST POSITION. CALL LIGHT AND TABLE IN EASY REACH. SIDE RAILS UP TIMES 2. WILL CONTINUE TO MONITOR CLOSELY.
[2023-03-22 20:00] VITALS: BP 92/54
--- NOTE | 2023-03-22 20:30 | NUR ---
RN NOTES TELE MONITOR READING SR 65 THEN SUDDENLY SHOWS AFIB WITH HR 135. AND THEN DROPS AGAIN TO 70. THE HR FLUCTUATES . NEW ORDER OF EKG DONE. THE EKG SHOWS UNCONFIRMED DIAGNOSIS. A DAY BEFORE THE EKG SHOWED THE SAME RESULT. PER PREVIOUS SHIFT NURSE ANTONIA HARRISON AWARE OF THE RESULTS. WILL CONTINUE TO MONITOR CLOSELY.
[2023-03-23] VITALS (13 sets, daily range): BP systolic 64–115; BP diastolic 24–82
--- NOTE | 2023-03-23 00:40 | NUR ---
RN NOTES PATIENT COMPLAINS OF PAIN OF BOTH LEGS BY MOANING, BEING RESTLESS AND MOVING LEGS AND VERBALIZING LEGS PAIN. SINCE PATIENT DID NOT PASS THE SWALLOW EVALUATION, NO PO MEDS CAN BE GIVEN. INFORMED DR NICKI PEARL AT 0040. NEW ORDER OF 2 MG IV MORPHINE PRN EVERY 6 HOURS GIVEN. ORDER NOTED AND CARRIED OUT.
[2023-03-23] MEDS: MORPHINE SULFATE INJ 2 MG/ML DISP.SYRIN IV PRN ×3 (00:53→18:24)
--- NOTE | 2023-03-23 00:55 | NUR ---
RN NOTES PATIENT COMPLAINS OF SEVERE BILATERAL LEG PAIN . PRN MORPHINE GIVEN ORDER FOR PAIN AT 0053. WILL ASSESS IN 30 MIN.
[2023-03-23] MEDS: IV 1/2NS 1000 ML 1,000 ML IV PRN (04:30)
--- NOTE | 2023-03-23 06:43 | NUR ---
LADLE BUILDER CLOSING NOTES PATIENT IN BED WITH OPEN EYES. PATIENT VERY CONFUSED AND ANGRY. TRYING TO REMOVE EVERYTHING. A/O TIMES 1 WITH CONFUSION. PATIENT IS ON BILATERAL SOFT RESTRAIN . SKIN AND CIRCULATION CHECKED. NO SOB NOTED. ON O2 INHALATION VIA NASAL CANNULA AT 3L/MIN. ON TELE MONITOR READING SR WITH EPISODES OF AFIB. RUSH CATHETER INTACT AND DRAINING YELLOW COLOR URINE VIA GRAVITY. URINE OUTPUT NOTED 100 ML. IV ACCESS ON THE LEFT FA G # 22 INTACT AND RUNNING 1/2 NS AT 75 ML/HR. ALL NEEDS ATTENDED. KEPT HOB ELEVATED FOR ASPIRATION. ALL SAFETY MEASURES IN PLACE. BED LOCKED IN THE LOWEST POSITION. CALL LIGHT AND TABLE IN EASY REACH. SIDE RAILS UP TIMES 2. WILL ENDORSE FOR KYLEIGH.
--- NOTE | 2023-03-23 07:25 | NUR ---
DAUB COLOR MIXER OPENING NOTES RECEIVED PATIENT IN BED, EYES OPENING, CONFUSED, MOANING WITH NO RECOGNIZABLE WORDS, ALERT TO SELF ONLY. PATIENT IS ON BILATERAL SOFT RESTRAIN, PT IS PULLING LINES: TELE LEADS, NASAL CANNULA, RUSH CATHETER, SKIN AND CIRCULATION IS GOOD. ON O2 INHALATION VIA NASAL CANNULA AT 3L/MIN NO SOB NOTED. TELE MONITOR READING CURRENTLY IS SR WITH EPISODES OF AFIB, FLUCTUATING, WITH HR IN THE 80S, MD IS AWARE. RUSH CATHETER INTACT AND DRAINING YELLOW COLOR URINE VIA GRAVITY WITH NO SEDIMENTS OR BLEEDING NOTED. IV ACCESS ON THE LEFT FA G # 22 INTACT AND RUNNING 1/2 NS AT 75 ML/HR, PATENT AND FLUSHING WELL. SAFETY MEASURES IN PLACE: BED IN LOWEST AND LOCKED POSITION, SIDE RAILS UP X2, CALL LIGHT AND TRAY TABLE WITHIN EASY REACH. WILL CONTINUE TO MONITOR.
[2023-03-23] MEDS: PANTOPRAZOLE 40 MG VIAL IV SCH (09:26)
[2023-03-23] MEDS: CLOTRIMAZOLE 1% 15 GM TUBE TP SCH ×2 (09:27→17:21)
[2023-03-23 10:00] LABS: BASOPHILS % (AUTO) 0.5 % (0.0-2.0); EOSINOPHILS % (AUTO) 0.2 % (0.0-6.0); HEMATOCRIT 43 % (33-45); HEMOGLOBIN 12.7 g/dL (11.5-14.8); LYMPHOCYTES # (AUTO) 1.1 K/uL (0.8-4.8); LYMPHOCYTES % (AUTO) 10.5 % (20.0-44.0); MEAN CORPUSCULAR HGB CONC 30 g/dl (31.0-36.0); MEAN CORPUSCULAR VOLUME 86 fL (82-100); MONOCYTES % (AUTO) 19.6 % (2.0-12.0); NEUTROPHILS % (AUTO) 69.2 % (43.0-81.0); RED BLOOD CELL COUNT(AUTO) 4.99 MIL/uL (4.0-5.2); WHITE BLOOD COUNT (AUTO) 10.1 K/uL (4.3-11.0)
--- NOTE | 2023-03-23 10:01 | NUR ---
OLIVE KNOCKER NOTES PT IS SLEEPING AT THIS MOMENT, REASSESSED BILATERAL WRIST RESTRAINTS, CIRCULATION IS GOOD, BRACELET AND WATCH REMOVED FROM LEFT WRIST AND PLACED IN A BAG. DVT PUMPS APPLIED ON BOTH LEGS. WILL CONTINUE TO MONITOR FOR SAFETY.
[2023-03-23 10:19] LABS: PLATELET COUNT (AUTO) 49 K/uL (150-450)
[2023-03-23 10:32] LABS: CALCIUM, SERUM 8.7 mg/dL (8.5-10.1); CARBON DIOXIDE 14 mmol/L (21-32); CHLORIDE 103 mmol/L (98-107); CREATININE 4.8 mg/dL (0.6-1.3); GLUCOSE 72 mg/dL (74-106); POTASSIUM 5.5 mmol/L (3.5-5.1); SODIUM SERUM 136 mmol/L (136-145)
[2023-03-23 10:36] LABS: MAGNESIUM 2.6 mg/dL (1.8-2.4); PHOSPHORUS 6.1 mg/dL (2.5-4.9)
[2023-03-23 10:57] LABS: UREA NITROGEN, BLOOD 88 mg/dL (7-18)
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
--- NOTE | 2023-03-23 13:30 | NUR ---
RN NOTES - TRANSFERRED PATIENT SAFELY TO ICU 259 FOLLOWING ACLS PROTOCOL VIA HER BED PER DR SINGH'S RECOMMENDATION D/T CARDIAC TAMPONADE. TRANSPORTED WITH O2 INHALATION OF 3LPM. ALL BELONGINGS, CHART, AND MEDICATION WERE SENT WELL. PATIENT WAS RECEIVED BY SAW ELDER.
--- NOTE | 2023-03-23 14:00 | NUR ---
DR. SINGH NOTIFIED OF PATIENT FREQUENT UNSUSTAINED VTACH. SBP 70'S. AWAITING FOR MD RESPONSE.
--- NOTE | 2023-03-23 14:40 | NUR ---
DR. ROWLAND FOR PULMONARY CONSULT AT BEDSIDE,PATIENT SEEN AND EXAMINED.
[2023-03-23 15:24] LABS: LYMPHOCYTES % (MANUAL) 9 % (16-48); MONOCYTES % (MANUAL) 19 % (0-11.0); NEUTROPHILS % (MANUAL) 72 (42-76)
--- NOTE | 2023-03-23 15:45 | NUR ---
RECEIVED CALL FROM DR. SINGH TO PREPARE PATIENT FOR PERICARDIOCENTESIS UNDER DR. FERNANDEZ. PER MD IT WILL BE AN EMERGENCY PROCEDURE , NO CONSENT NEEDED.
--- NOTE | 2023-03-23 16:00 | NUR ---
ATTEMPT TO REACH PATIENT FAMILY ON CHART , WENDY ANDERSON AND CELY RUTH LISTED SISTERS. LEFT MESSAGE.
--- NOTE | 2023-03-23 16:45 | NUR ---
DR. FERNANDEZ FOR CARDIOTHORACIC CONSULT AT BEDSIDE TO EXAMINE PATIENT. ECHOCARDIOGRAM REVIEWED BY
--- NOTE | 2023-03-23 17:00 | NUR ---
DR. FERNANDEZ SPOKE TO PATIENT FAMILY VIA PHONE AT [facility] REGARDING CONDITION AND PLAN OF CARE. PER MD, FAMILY TO CALL BACK .
--- NOTE | 2023-03-23 18:05 | NUR ---
RN NOTES PT MADE COMFORT MEASURES ONLY BY KEITH LOCO (NONPROFIT MANAGER). ATIVAN AND MORPHINE ORDERED BY KEITH FOR ANXIETY AND PAIN.
[2023-03-23] MEDS ORDERED: LORAZEPAM INJ 2 MG/ML VIAL IV PRN (18:30)
--- NOTE | 2023-03-23 19:24 | NUR ---
RN NOTES PT IS SLEEPING AND LOOKS COMFORTABLE. NO VISUAL SIGNS OF PAIN AT THIS TIME. PT CURRENTLY ON COMFORT CARE ONLY PENDING TRANSFER TO MED/SURG. REPORT GIVEN TO EVELYNE SPRING FOR CONTINUATION OF CARE.
--- NOTE | 2023-03-23 20:26 | NUR ---
RN NOTE RECEIVED REPORT FROM DISK AND TAPE MACHINE TENDER EVELYNE.
--- NOTE | 2023-03-23 20:40 | NUR ---
MS RN ADMITTING NOTE PATIENT IS BEING TRANSPORTED TO THE UNIT ON A HOSPITAL BED FROM ICU. PT IS AWAKE BUT CONFUSED, AO X 0. UPON ADMISSION, VITAL SIGNS WERE TAKEN. BP IS 103/60; HR IS 85; TEMP. IS 97.1, RR IS 19. SHE IS ON 3 LPM OXYGEN VIA NC, O2 SAT IS 93%. PT HAS IV ACCESS AT HER L FA, #22G. SL. FLUSHED WELL WITH 10 CC OF NS. PT HAS RUSH CATHETER, THE URINE BAG IS EMPTY. PT IS NPO. SHE IS ON COMFORT MEASURES ONLY. SAFETY MEASURES ARE IN PLACED: BED IN LOWEST AND LOCKED POSITION; SIDE RAILS UP X 2; CALL LIGHT AND TABLE ARE WITHIN REACH. WILL CONTINUE MONITORING THE PT AND PROVIDE THE CARE PT NEEDS.
--- NOTE | 2023-03-23 20:42 | NUR ---
ICU/RN: PT TRANSFERRED TO ROOM 327-2 REPORT TO MARCH RN.
[2023-03-24] MEDS: MORPHINE SULFATE INJ 2 MG/ML DISP.SYRIN IV PRN (01:23)
--- NOTE | 2023-03-24 01:40 | NUR ---
MS RN NOTE PT IS VERY CONFUSED AND KEEPS PULLING OFF THE OXYGEN TUBING FROM HER NOSE. NOTIFIED THE N.P. AND RECEIVED THE RESTRAINTS ORDER FOR SOFT WRISTS BILATERAL. CHARGE NURSE, LZA, NOTIFIED.
--- NOTE | 2023-03-24 06:15 | NUR ---
FACSIMILE OPERATOR NURSE NOTES PT. AT THIS TIME, PATIENT HAS NO PULSE, VITAL SIGNS, PUPILS WAS DILATED. WITNESSED BY ANOTHER SAW SANDY
--- NOTE | 2023-03-24 06:22 | NUR ---
RN NOTE PT AT 0615. CALLED [facility] AT AND REPORT GIVEN TO DANE ELLIS. RECEIVED REFERRAL ID # [id number]. RECEIVED THE MESSAGE OKAY TO RELEASE THE BODY.
--- NOTE | 2023-03-24 06:38 | NUR ---
RN NOTE FINISHED FILLING OUT THE FORM "RECORD OF / AUTHORIZATION FOR RELEASE OF REMAINS" AND TURN IT IN TO THE CHARGE NURSE, LAZ. PT'S REMAIN WAS TAKEN AWAY BY TWO SECURITIES.
--- NOTE | 2023-03-24 06:45 | NUR ---
RN NOTES SPOKE TO PAT SISTER MOO BRATH AND INFORMED HER ABOUT THE PATIENT. PER SISTER THEY DON'T HAVE ARRANGEMENT YET AND WE WILL JUST SENT THE BODY TO [facility]
== END 2023-03-24 06:15 | DRG 682 ==
LOC: ER 19:15 → TELE 23:37 → ICU 03-23 13:29 → MED 03-23 20:38
PROVIDERS: ADMIT Nurse Practitioner Family; ATTEND Nurse Practitioner Acute Care
DX: N17.0 Acute kidney failure with tubular necrosis (principal); G93.41 Metabolic encephalopathy; I50.31 Acute diastolic (congestive) heart failure; I31.4 Cardiac tamponade; I13.0 Hypertensive heart and chronic kidney disease with heart failure and stage 1 through stage 4 chronic kidney disease, or unspecified chronic kidney disease; N39.0 Urinary tract infection, site not specified; I48.20 Chronic atrial fibrillation, unspecified; I47.20 Ventricular tachycardia, unspecified; I31.39 Other pericardial effusion (noninflammatory); Z51.5 Encounter for palliative care; Z66 Do not resuscitate; Z20.822 Contact with and (suspected) exposure to COVID-19; F03.C0 Unspecified dementia, severe, without behavioral disturbance, psychotic disturbance, mood disturbance, and anxiety; N18.9 Chronic kidney disease, unspecified; I25.10 Atherosclerotic heart disease of native coronary artery without angina pectoris; E87.5 Hyperkalemia; J44.9 Chronic obstructive pulmonary disease, unspecified; M81.0 Age-related osteoporosis without current pathological fracture; E03.9 Hypothyroidism, unspecified; M19.90 Unspecified osteoarthritis, unspecified site; Z89.021 Acquired absence of right finger(s); Z79.51 Long term (current) use of inhaled steroids; Z79.899 Other long term (current) drug therapy; I50.9 Heart failure, unspecified; B96.89 Other specified bacterial agents as the cause of diseases classified elsewhere; N28.1 Cyst of kidney, acquired; Z95.828 Presence of other vascular implants and grafts
CPT/HCPCS: 36415; 71045-TC; 76770-TC; 80048-TC; 80076-TC; 81001; 82607-TC; 83735-TC; 83880; 84100-TC; 84443-TC; 85025-TC; 87081-TC; 87086-TC; 93307-TC; A4223; C9113; C9803; G0378; J0692; J0696; J2270; J3490; J7060